=== PATIENT | female | born 1955 | race Caucasian/White ===

== ENCOUNTER 2017-08-07 12:38 | Emergency (ER) | payer OTHER ==
[~2017-08-07] VITALS: Ht 165.1 cm; Wt 78.0 kg
[2017-08-07] MEDS ORDERED: PLAVIX75 MG (13:06)
[2017-08-07] MEDS ORDERED: HYDROCHLOROTHIA25 MG (13:07)
[2017-08-07] MEDS ORDERED: ZANTAC300 MG (13:07)
[2017-08-07] MEDS ORDERED: ANORO ELLIPTA1 EACH IH (14:53)
== END 2017-08-07 14:56 | disposition home or self-care (01) ==
LOC: ER 12:38
DX: S00.83XA Contusion of other part of head, initial encounter (principal); S90.02XA Contusion of left ankle, initial encounter; S40.021A Contusion of right upper arm, initial encounter; W18.39XA Other fall on same level, initial encounter; Y93.89 Activity, other specified; Y92.098 Other place in other non-institutional residence as the place of occurrence of the external cause; Y99.8 Other external cause status

== ENCOUNTER → 2017-10-17 09:08 | Outpatient (CLI) | payer OTHER ==
[~2017-10-17 09:08] MED LIST: ANORO ELLIPTA1 EACH IH; HYDROCHLOROTHIA25 MG; PLAVIX75 MG; ZANTAC300 MG
== END | disposition home or self-care (01) ==
LOC: LAB 09:08
DX: R73.09 Other abnormal glucose (principal); M79.605 Pain in left leg; M79.604 Pain in right leg; Z12.89 Encounter for screening for malignant neoplasm of other sites; H57.8 Other specified disorders of eye and adnexa; E03.8 Other specified hypothyroidism

== ENCOUNTER 2017-10-17 09:34 | Outpatient (CLI) | payer OTHER | END 2017-10-17 09:42 | disposition home or self-care (01) | LOC: NUCLEAR 09:34 | DX: I73.9 Peripheral vascular disease, unspecified (principal); R73.09 Other abnormal glucose; R53.81 Other malaise; M79.605 Pain in left leg; M79.604 Pain in right leg ==

== ENCOUNTER 2017-10-17 11:32 | Outpatient (CLI) | payer OTHER | END 2017-10-17 11:41 | disposition home or self-care (01) | LOC: MAMO-SONO 11:32 | DX: Z12.31 Encounter for screening mammogram for malignant neoplasm of breast (principal); N64.89 Other specified disorders of breast; R73.09 Other abnormal glucose; M79.605 Pain in left leg; M79.604 Pain in right leg ==

== ENCOUNTER 2018-12-17 08:38 | Outpatient (CLI) | payer OTHER | END 2018-12-17 08:53 | disposition home or self-care (01) | LOC: SONOGRAMA 08:38 | DX: E04.1 Nontoxic single thyroid nodule (principal) ==

== ENCOUNTER 2021-06-19 09:24 | Outpatient (CLI) | payer OTHER | END 2021-06-19 09:26 | disposition home or self-care (01) | LOC: MAMO-SONO 09:24 | PROVIDERS: ATTEND General Practice | DX: Z12.31 Encounter for screening mammogram for malignant neoplasm of breast (principal) ==

== ENCOUNTER 2021-06-26 07:26 | Outpatient (CLI) | payer OTHER | END 2021-06-26 07:31 | disposition home or self-care (01) | LOC: NUCLEAR 07:26 | PROVIDERS: ATTEND Internal Medicine Cardiovascular Disease | DX: I11.9 Hypertensive heart disease without heart failure (principal) ==

== ENCOUNTER 2021-07-03 08:20 | Outpatient (CLI) | payer OTHER | END 2021-07-03 08:31 | disposition home or self-care (01) | LOC: MRI 08:20 | PROVIDERS: ATTEND General Practice | DX: G89.11 Acute pain due to trauma (principal); M48.47XA Fatigue fracture of vertebra, lumbosacral region, initial encounter for fracture; M48.58XA Collapsed vertebra, not elsewhere classified, sacral and sacrococcygeal region, initial encounter for fracture | CPT/HCPCS: 72148 ==

== ENCOUNTER 2022-01-09 08:39 | Outpatient (CLI) | payer OTHER | END 2022-01-09 08:59 | disposition home or self-care (01) | LOC: RAD 08:39 | PROVIDERS: ATTEND General Practice | DX: M79.604 Pain in right leg (principal); R22.41 Localized swelling, mass and lump, right lower limb; I10 Essential (primary) hypertension ==